=== PATIENT | male | born 1955 | race Caucasian/White ===

== ENCOUNTER → 2020-10-23 | Outpatient (CLI) | payer MEDICARE, BC ==
[~2020-10-23] MED LIST: CALCIUM 600 +1 EA11 PO; CATAPRES 0.1MG0.1 MG PO; CETIRIZINE HCL5 MG PO; COZAAR100 MG PO; CRESTOR20 MG PO; DILTIAZEM ER120 M1 PO; FAMOTIDINE20 MG PO; FISH OIL 1,0001 EAC4 PO; FLONASE ALLER15.8 ML; FUROSEMIDE20 MG PO; GLUCOTROL5 MG PO; HEARTBURN PREVE20 MG PO; HYDRALAZINE HC100 MG PO; LIPITOR TAB 2020 MG PO; METOPROLOL SUC100 MG PO; NORVASC 5 MG TAB5 MG PO; PLAVIX 75 MG TA75 MG PO; PREDNISONE20 MG PO; VENTOLIN HFA 66.7 GM INH; VITAMIN D21250 MCG PO; VITAMIN D325 MC6 PO
== END ==
LOC: US 10-13 15:00
DX: I65.23 Occlusion and stenosis of bilateral carotid arteries (principal); N18.6 End stage renal disease
CPT/HCPCS: 93880; 93985

== ENCOUNTER → 2020-10-30 | Outpatient (CLI) | payer MEDICARE, BC ==
[2020-10-30 14:25] LABS: HEMOGLOBIN 12.3 gm/dl (14.0-17.5); RED BLOOD COUNT 4.36 M/UL (4.20-5.50); WHITE BLOOD COUNT 12.1 K/UL (4.5-11.0)
== END ==
LOC: OPSV2 12:30
PROVIDERS: Surgery
DX: Z01.818 Encounter for other preprocedural examination (principal)
CPT/HCPCS: 71046; 80053; 81001; 85025; 85610; 85730; 86850; 86900; 86901; 93005

== ENCOUNTER → 2020-10-31 | Day surgery (SDC) | payer MEDICARE, BC | END | disposition home or self-care (01) | LOC: OR 07:30 | DX: I12.0 Hypertensive chronic kidney disease with stage 5 chronic kidney disease or end stage renal disease (principal); E11.22 Type 2 diabetes mellitus with diabetic chronic kidney disease; N18.6 End stage renal disease; G47.33 Obstructive sleep apnea (adult) (pediatric); I25.2 Old myocardial infarction; E78.5 Hyperlipidemia, unspecified; F17.210 Nicotine dependence, cigarettes, uncomplicated; Z99.2 Dependence on renal dialysis; Z86.73 Personal history of transient ischemic attack (TIA), and cerebral infarction without residual deficits; Z88.6 Allergy status to analgesic agent; Z79.02 Long term (current) use of antithrombotics/antiplatelets; Z79.84 Long term (current) use of oral hypoglycemic drugs; Z79.899 Other long term (current) drug therapy | CPT/HCPCS: J0171; J0690; J1100; J1580; J1644; J2001; J2250; J2405; J2704; J2720; J2795; J3010; J7040; J7050; J7120 ==

== ENCOUNTER 2021-02-07 17:24 | Emergency (ER) | payer MEDICARE, BC ==
[2021-02-07 18:22] LABS: HEMOGLOBIN 10.6 gm/dl (14.0-17.5); RED BLOOD COUNT 3.9 M/UL (4.20-5.50); WHITE BLOOD COUNT 8.7 K/UL (4.5-11.0)
== END 2021-02-08 02:00 | disposition short-term general hospital (02) ==
LOC: ER1 17:24
PROVIDERS: Family Medicine
DX: K62.5 Hemorrhage of anus and rectum (principal); I71.4 Abdominal aortic aneurysm, without rupture; I12.0 Hypertensive chronic kidney disease with stage 5 chronic kidney disease or end stage renal disease; N18.6 End stage renal disease; Z87.442 Personal history of urinary calculi; E11.22 Type 2 diabetes mellitus with diabetic chronic kidney disease; Z86.73 Personal history of transient ischemic attack (TIA), and cerebral infarction without residual deficits; Z90.49 Acquired absence of other specified parts of digestive tract; Z88.6 Allergy status to analgesic agent; Z79.02 Long term (current) use of antithrombotics/antiplatelets; Z79.899 Other long term (current) drug therapy; F17.210 Nicotine dependence, cigarettes, uncomplicated; Z20.822 Contact with and (suspected) exposure to COVID-19
CPT/HCPCS: 80053; 81001; 82270; 83690; 85025; 85610; 85730; 86850; 86900; 86901; 96374; 99284; C9113; U0002